=== PATIENT | male | born 1950 | race Caucasian/White ===

== ENCOUNTER 2021-06-29 08:06 | Outpatient (REF) | payer MEDICARE, OTHER, SELFPAY ==
--- NOTE | ~2021-06-29 | US_ITS ---
EXAMINATION: US RETROPERITONEAL LIMITED (RENAL ONLY) CLINICAL INFORMATION: Renal cyst. COMPARISON: None TECHNIQUE: Real-time imaging of the kidneys. FINDINGS: RIGHT KIDNEY: 12.8 x 5.7 x 5.2 cm (SAG x AP x TRV). The kidney is normal in size, contour, and echogenicity. Renal cortical thickness is normal. There is a small cyst possibly with wall calcification or milk of calcium cyst in the midpole measuring 8 x 5 x 8 mm. No renal calculi. No hydronephrosis. LEFT KIDNEY: 4.9 x 5.8 x 7.1 cm (SAG x AP x TRV). The kidney is normal in size, contour, and echogenicity. Renal cortical thickness is normal. There are multiple cysts, at least 4, largest measuring 5.2 x 5.4 x 5 cm in the midpole. No renal calculi or hydronephrosis. US/US renal BI IMPRESSION: Bilateral renal cysts, left greater than right.
== END 2021-06-29 08:07 | disposition home or self-care (01) ==
LOC: HO.US 08:06
PROVIDERS: PCP Otolaryngology; Visit Provider Urology
DX: N28.1 Cyst of kidney, acquired (principal)
CPT/HCPCS: 76775

== ENCOUNTER → 2021-07-28 15:34 | Outpatient (BNVA) | payer MEDICARE, OTHER, SELFPAY | PROVIDERS: PCP Physician Assistant; Visit Provider Urology | DX: N28.1 Cyst of kidney, acquired (principal); N40.0 Benign prostatic hyperplasia without lower urinary tract symptoms | CPT/HCPCS: Q3014 ==

== ENCOUNTER → 2021-12-11 12:17 | Outpatient (BNVA) | payer MEDICARE, OTHER, SELFPAY | PROVIDERS: PCP Physician Assistant; Visit Provider Urology | DX: Z13.89 Encounter for screening for other disorder (principal) | CPT/HCPCS: Q3014 ==

== ENCOUNTER 2022-05-11 08:57 | Outpatient (REF) | payer MEDICARE, OTHER, SELFPAY ==
--- NOTE | ~2022-05-11 | US_ITS ---
EXAMINATION: US RETROPERITONEAL LIMITED (RENAL ONLY) CLINICAL INFORMATION: Cysts. COMPARISON: Previous renal ultrasound most recent June 2021 TECHNIQUE: Grayscale and color imaging of the kidneys FINDINGS: RIGHT KIDNEY: 13.9 x 5.6 x 5.6 cm (SAG x AP x TRV). The kidney is normal in size, contour, and echogenicity. Renal cortical thickness is normal. There is a 1.4 x 0.6 x 1.2 cm cyst in the lateral midpole. No calculi or mass. No hydronephrosis. LEFT KIDNEY: 12.7 x 5.6 x 5.6 cm (SAG x AP x TRV). The kidney is normal in size, contour, and echogenicity. Renal cortical thickness is normal. There are 3 cysts measuring 5.9 x 5.3 x 4.7 cm in the midpole, 0.7 x 0.6 x 1 cm in the lateral midpole and 0.4 x 0.4 x 0.7 cm in the lateral lower pole. No calculi or mass. No hydronephrosis. US/US renal BI IMPRESSION: Bilateral renal cysts not appreciably changed from June 2021 exam.
[2022-05-11 10:50] LABS: Blood Urea Nitrogen 16 mg/dL (9-16); Estimated Glomerular Filt Rate 59
[2022-05-11 11:16] LABS: PSA,Total (Free>4and<10) 2.85 ng/mL (0.00-4.00)
== END 2022-05-11 08:58 | disposition home or self-care (01) ==
LOC: HO.US 08:57
PROVIDERS: PCP Family Medicine; Visit Provider Urology
DX: Z12.5 Encounter for screening for malignant neoplasm of prostate (principal); N28.1 Cyst of kidney, acquired; N40.0 Benign prostatic hyperplasia without lower urinary tract symptoms
CPT/HCPCS: 36415; 76775; 82565; 84153; 84520

== ENCOUNTER → 2022-05-21 13:07 | Outpatient (BNVA) | payer MEDICARE, OTHER, SELFPAY | PROVIDERS: PCP Family Medicine; Visit Provider Urology | DX: N40.0 Benign prostatic hyperplasia without lower urinary tract symptoms (principal); N28.1 Cyst of kidney, acquired | CPT/HCPCS: 51798; 99212 ==

== ENCOUNTER 2023-05-02 09:46 | Outpatient (REF) | payer MEDICARE, OTHER, SELFPAY ==
--- NOTE | ~2023-05-02 | US_ITS ---
EXAMINATION: US RETROPERITONEAL COMPLETE (RENAL) CLINICAL INFORMATION: Cyst of kidney, acquired. COMPARISON: Renal ultrasound 05/11/2022 and 06/29/2021. MRI abdomen 02/11/2022. TECHNIQUE: Real-time imaging of the kidneys and bladder. FINDINGS: RIGHT KIDNEY: 13.0 x 6.2 x 5.4 cm (SAG x AP x TRV). The kidney is normal in size, contour, and echogenicity. Renal cortical thickness is normal. No hydronephrosis. At the lower pole, a 4 mm nonobstructing calculus is seen, with twinkle artifact. At the interpolar aspect, a 1.4 cm benign, simple cyst is seen. LEFT KIDNEY: 13.0 x 6.3 x 4.8 cm (SAG x AP x TRV). The kidney is normal in size, contour, and echogenicity. Renal cortical thickness is normal. No hydronephrosis. At the upper pole, a 3 mm nonobstructing calculus is seen, with twinkle artifact. At the interpolar aspect, a 5 mm nonobstructing calculus is seen, with twinkle artifact. At the interpolar aspect, 6.0 cm and 0.8 cm benign, simple cysts are seen. BLADDER: Well distended and normal. Bilateral ureteral jets are demonstrated. Prevoid bladder volume is 352 mL. Postvoid bladder volume is 58 mL. OTHER: Prostate dimensions are 3.9 x 4.8 x 4.4 cm (volume 42.7 mL). US/US retroperitoneal comp IMPRESSION: 1. Nonobstructing bilateral renal calculi are seen, as detailed. No hydronephrosis is noted bilaterally. 2. There are benign, simple bilateral cysts, for which no imaging follow-up is recommended. 3. There is a borderline increased postvoid residual volume. 4. There is prostatomegaly.
== END 2023-05-02 09:47 | disposition home or self-care (01) ==
LOC: HO.US 09:46
PROVIDERS: PCP Family Medicine; Visit Provider Nurse Practitioner Family
DX: Z12.5 Encounter for screening for malignant neoplasm of prostate (principal); N28.1 Cyst of kidney, acquired; N40.0 Benign prostatic hyperplasia without lower urinary tract symptoms
CPT/HCPCS: 36415; 76770; 84153

== ENCOUNTER 2023-05-02 10:15 | Outpatient (REF) | payer MEDICARE, OTHER, SELFPAY ==
[2023-05-02 12:04] LABS: Prostate Specific Antigen 2.58 ng/mL (<0.05-4.0)
== END 2023-05-02 10:16 | disposition home or self-care (01) ==
LOC: HO.LAB 10:15
PROVIDERS: PCP Family Medicine; Visit Provider Urology
DX: Z13.89 Encounter for screening for other disorder (principal)
CPT/HCPCS: 36415; 84153

== ENCOUNTER → 2023-05-26 09:20 | Outpatient (BNVA) | payer MEDICARE, OTHER, SELFPAY | PROVIDERS: Visit Provider Urology | DX: N20.0 Calculus of kidney (principal); N40.0 Benign prostatic hyperplasia without lower urinary tract symptoms | CPT/HCPCS: 51798; 99212 ==

== ENCOUNTER 2024-05-07 07:51 | Outpatient (REF) | payer MEDICARE, SELFPAY ==
--- NOTE | ~2024-05-07 | US_ITS ---
EXAMINATION: US RETROPERITONEAL LIMITED (RENAL ONLY) CLINICAL INFORMATION: Calculus of kidney. COMPARISON: Renal ultrasound 05/02/2023, renal ultrasound 05/11/2022. TECHNIQUE: Real-time imaging of the kidneys. Limited visualization due to bowel gas. FINDINGS: RIGHT KIDNEY: 13.3 x 5.4 x 6.7 cm (SAG x AP x TRV). Renal cortical thickness is normal. No hydronephrosis. No renal calculi. Limited visualization. 1.2 cm mid pole cyst with peripheral echogenic focus, possibly representing calcification. There is no indication for additional imaging at this time. LEFT KIDNEY: 13.4 x 6.1 x 5.3 cm (SAG x AP x TRV). 5 mm upper pole calculus. No hydronephrosis. Renal cortical thickness is normal. Multiple renal cysts, largest 6.1 cm mid pole cyst with benign features. There is no indication for follow-up imaging. US/US renal BI IMPRESSION: 5 mm left renal calculus. No hydronephrosis.
[2024-05-07 10:50] LABS: Prostate Specific Antigen 3.42 ng/mL (<0.05-4.0)
== END 2024-05-07 07:52 | disposition home or self-care (01) ==
LOC: HO.US 07:51
PROVIDERS: PCP Family Medicine; Visit Provider Urology
DX: Z12.5 Encounter for screening for malignant neoplasm of prostate (principal); N20.0 Calculus of kidney; N40.0 Benign prostatic hyperplasia without lower urinary tract symptoms
CPT/HCPCS: 36415; 76775; 84153

== ENCOUNTER 2024-05-25 08:44 | Outpatient (AMB) | payer MEDICARE, SELFPAY ==
--- NOTE | 2024-05-25 08:50 | A.OFFVIS_ITS ---
Intake Visit Reasons: 1y/US(set) Intake Note: Patient is present for 1 y/US Urology Medication:tamsulosin Antibiotic Allergy:none Blood Thinner:none Dairy Nutritionist Required: No Allergies No Known Allergies Allergy (Verified 05/25/24 08:51) Medication List - Last Reconciled 05/25/24 by Jordan Ayoub MD amlodipine 5 mg PO DAILY metoprolol succinate ER 50 mg PO DAILY rosuvastatin 10 mg PO BEDTIME simvastatin 20 mg PO BEDTIME tamsulosin 0.4 mg PO BEDTIME 90 days HPI Comments Details: Ron Bedolla is a very pleasant male. He is a patient of Dr White. He is seen for the following urologic conditions - lower urinary tract symptoms - nephrolithiasis Slight rise in PSA over the last year Within limits Discussed ultrasound Controlled urinary symptoms Twelve month follow-up Lower Urinary Tract Symptoms:? Current visit is for?further evaluation of, lower urinary tract symptoms, predominate obstructive symptoms.? Current treatment includes?medication, alpha jan - tamsulosin ? Prostate Symptom Score?Mild (0-8), Bother 2 Imaging - 05/20 prostate 45 cc, complete emptying, small bilateral cysts, punctate stone PSA - 09/17 2.5, 05/19 2.9, 05/20 2.6, 05/21 3.4 Therapeutic plan - continue alpha-jan Nephrolithiasis/Urolithiasis:? Here with follow-up renal imaging ?had parathyroidectomy for elevated calcium. ? They are here for?further evaluation of nephrolithiasis.? Urolithiasis was diagnosed?07/15 Hematuria with [facility] [place] visit ?- No prior history or FH ?- thinks he drank too much iced tea this summer.? The patient previously had kidney stones whose composition w?unknown.? Laboratory investigations include?no recent labs.? 24 Hour urine evaluation?none on file.? Prior imaging includes?07/15 , a CT (computed tomography) scan of the abdomen/pelvis (stone protocol) - right mild ureteronephrosis with 4mm distal stone ?- left kidney 4.7cm cyst ?02/13 - , a renal ultrasound - 06/17 renal ultrasound 8 mm cyst right side, left multiple cysts largest 4 cm - 05/19 renal ultrasound bilateral cysts, no stones - 05/21 renal ultrasound bilateral cysts up to 6 cm, small stone left 4 mm ? Current therapeutic plan will be?to continue with imaging surveillance.? PFSH Medical History Bladder outlet obstruction BPH (benign prostatic hyperplasia) Hyperglycemia Hyperlipidemia Microscopic hematuria Renal cyst, acquired Weak urinary stream Surgical History H/O heart surgery Review of Systems Const Denies chills and Denies fever(s) Card Reports no additional complaints and Denies syncope Resp Denies cough GI Denies abdominal pain and Denies heartburn Reports as per HPI and Denies change in libido Neuro Denies syncope Psych Denies change in libido Endo Denies change in libido Physical Exam Const General: cooperative, healthy appearing, comfortable and no acute distress Orientation/consciousness: patient oriented x3 HEENT Face and sinus: Yes normal facial exam Mouth: moist mucous membranes Neck Neck: Yes normal visual inspection, Yes full ROM and Yes trachea midline Chest Chest palpation & inspection: normal inspection of the chest Resp Effort & Inspection: normal respiratory effort, able to speak in complete sentences and no respiratory distress GI Inspection: Yes normal to inspection Back/Spine/Pelvis Cervical Spine: normal cervical lordosis Thoracic/Lumbar Spine: thoracic and lumbar spine normal to inspection Skin General skin exam: no rashes or lesions noted Neuro General: patient oriented x3, gait normal, tone normal and moves all extremities Extrem General: Yes normal to inspection and Yes capillary refill normal Assessment & Plan Assessment & Plan (1) Nephrolithiasis: Code(s): N20.0 - Calculus of kidney Category: Medical (2) BPH (benign prostatic hyperplasia): Code(s): N40.0 - Benign prostatic hyperplasia without lower urinary tract symptoms Category: Medical Plan Twelve month follow-up repeat PSA and renal ultrasound Orders: Orders Prostate Specific Antigen 364 Days N20.0 - Calculus of kidney US renal BI 12 Months N20.0 - Calculus of kidney Patient Instructions: Imaging studies, laboratory and physical exam results were discussed and reviewed in detail. No major barriers to patient understanding were identified. An opportunity to ask questions regarding the treatment plan was provided. All questions were answered. The patient expressed understanding and agreement with the above treatment plan. The patient is aware they should contact our office by phone for worsening of their current condition or the appearance of new urologic symptoms. Compliance is encouraged with any medications and followup testing that is ordered. It is a privilege to participate in the urologic care of your patient. If you have any questions or concerns regarding treatment for the above conditions, or other urologic issues, please do not hesitate to contact me. The office telephone contact is [phone]. This note is constructed using voice recognition software. While every effort has been made to ensure accuracy gift shop assistant errors may have been included. Yours sincerely, Dr Jordan Ayoub MD, [facility] - Urology Providers of Expert, Compassionate Care for the Genitourinary System Coding Level of Care Code Est Pt Level 4 (51271) Diagnoses Nephrolithiasis N20.0 BPH (benign prostatic hyperplasia) N40.0
== END 2024-05-25 09:17 | disposition home or self-care (01) ==
PROVIDERS: PCP Family Medicine; Visit Provider Urology
DX: N20.0 Calculus of kidney (principal); N40.0 Benign prostatic hyperplasia without lower urinary tract symptoms
CPT/HCPCS: 99213

== ENCOUNTER → 2024-05-25 08:44 | Outpatient (BNVA) | payer MEDICARE, SELFPAY | PROVIDERS: PCP Family Medicine; Visit Provider Urology | DX: N40.0 Benign prostatic hyperplasia without lower urinary tract symptoms (principal); N20.0 Calculus of kidney | CPT/HCPCS: 99212 ==

== ENCOUNTER 2025-05-13 13:02 | Outpatient (REF) | payer MEDICARE, SELFPAY ==
--- NOTE | ~2025-05-13 | US_ITS ---
.EXAMINATION: Ultrasound renal bilaterally. CLINICAL INFORMATION: Calculus of the kidney. COMPARISON: May 07, 2024. TECHNIQUE: Real-time ultrasound kidneys using grayscale technique. FINDINGS: Right kidney: Routine by 6 x 6 cm. Normal echotexture. Normal renal cortical thickness. No hydronephrosis. There is a 1.2 cm anechoic lesion with punctate hyperechogenic area centered in the midportion. No flow on color Doppler interrogation. Left kidney: 13 x 6 x 4 cm. Normal echotexture. Normal renal cortical thickness. No hydronephrosis. There is a 6.5 cm exophytic anechoic lesion without septations or nodular component in the midportion. There are other few scattered anechoic lesions measuring less than 2 cm. US/US renal BI IMPRESSION: No hydronephrosis. Bosniak type I and type II cystic lesions. Overall stable. Electronically signed by: Immanuel Mariano MD 05/13/2025 02:10 PM EDT
--- OUTSIDE RECORDS SUMMARY | 2025-05-13 14:26 | XMS_ITS | Clinical Summary ---
Author Organization [facility] Address [address] [place] [address] Care Team Providers Care Mining Technician Name Role Phone HussainPhilip MD Primary Care Provider [phone] Allergies Active Allergy Reactions Criticality Noted Date Comments No Active Allergies 04/24/2015 Medications Medication Sig Dispensed Refills Start Date End Date Status simvastatin (ZOCOR) 20 MG tablet 2 03/26/2015 Active NASONEX 50 MCG/ACT nasal spray 11 03/25/2015 Active metoprolol (TOPROL-XL) 50 MG 24 hr tablet 3 03/25/2015 Active loratadine (CLARITIN) 10 MG tablet Claritin 10 MG Oral Tablet TAKE 1 TABLET DAILY. 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 Major depressive disorder, recurrent episode Overview: ICD-10 Activation BP (high blood pressure) 04/24/2015 Hypercholesteremia 04/24/2015 Cannabis dependence with physiological dependenc e 04/24/2015 Social History Tobacco Use Types Packs/Day Years Used Date Smoking Tobacco: Never Smokeless Tobacco: Never Alcohol Use Standard Drinks/Week Comments Yes 3 (1 standard drink = 0.6 oz pur e alcohol) Sex and Gender Information Value Date Recorded Sex Assigned at Not on file Gender Identity Not on file Sexual Orientation Not on file Plan of Treatment Health Maintenance Due Date Last Done Comments Hepatitis C Screening 1950 COVID-19 Vaccine (#1) 1950 Depression Screening 1964 Preventative Health Evaluation 01/28/1970 Colon Cancer Screening (Colonoscopy) 01/28/1997 Shingrix-Zoster Vaccine (1 of 2) 01/28/2002 Fall Risk Assessment 01/28/2017 Pneumococcal Vaccine (1 of 1 - PCV) 01/28/2017 DTap / Tdap / Td (2 - Td or Tdap) 03/07/2023 013 Influenza Vaccine (Season Ended) 2025 RSV Adult > 60+ Yrs or Pregn ant (1 - 1-dose 75+ series) 01/28/2027 Hepatitis B Vaccines Aged Out No long er eligible based on patient's age to complete this topic RSV Ped < 20 months Aged Out No longe r eligible based on patient's age to complete this topic Advance Directives For more information, please contact: [phone] Documents on File Type Date Recorded Patient Home Theater Specialist Expl anation Advance Directive and Living Will 07/09/2015 12:50 PM Care Teams Mining Technician Relationship Specialty Start Date End Date Philip Nixon MD [address] [place] [address] PCP - General Family Medicine 02/12/16
[2025-05-13 15:33] LABS: Prostate Specific Antigen 3.56 ng/mL (<0.05-4.0)
== END 2025-05-13 13:03 | disposition home or self-care (01) ==
LOC: HO.US 13:02
PROVIDERS: PCP Family Medicine; Visit Provider Urology
DX: Z12.5 Encounter for screening for malignant neoplasm of prostate (principal); N20.0 Calculus of kidney
CPT/HCPCS: 36415; 76775; 84153

== ENCOUNTER → 2025-05-13 13:03 | Outpatient (BNV) | payer MEDICARE, SELFPAY | PROVIDERS: PCP Family Medicine; Visit Provider Radiology Diagnostic Radiology | DX: N28.1 Cyst of kidney, acquired (principal) | CPT/HCPCS: 76775 ==

== ENCOUNTER 2025-05-22 08:29 | Outpatient (AMB) | payer MEDICARE, SELFPAY ==
--- NOTE | 2025-05-22 08:30 | A.OFFVIS_ITS ---
Intake Visit Reasons: 1yr/PSA/U/S Intake Note: Patient is present for 1 y/US follow up with PSA Urology Medication:tamsulosin Antibiotic Allergy:none Blood Thinner:none PVR:195 ml's PSA 05/13/25: 3:56 Imaging :05/13/25 Product/Device Technologist Required: No Accompanied by: Self / Same As Patient Allergies No Known Allergies Allergy (Verified 05/22/25 08:42) HPI Comments Details: Ron Bedolla is a very pleasant male. He is a patient of Dr White. He is seen for the following urologic conditions - lower urinary tract symptoms - nephrolithiasis PSA remains within limit Continues on tamsulosin Urinary Symptoms Review - Urinary hesitancy noted, managed with tamsulosin - Nocturnal symptoms not explicitly discussed Brother with prostate cancer 12m f/u Lower Urinary Tract Symptoms:? Current visit is for?further evaluation of, lower urinary tract symptoms, predominate obstructive symptoms.? Current treatment includes?medication, alpha jan - tamsulosin ? Prostate Symptom Score?Mild (0-8), Bother 2 Imaging - 05/20 prostate 45 cc, complete emptying, small bilateral cysts, punctate stone PSA - 09/17 2.5, 05/19 2.9, 05/20 2.6, 05/21 3.4, 05/22 3.6 Therapeutic plan - continue alpha-jan Nephrolithiasis/Urolithiasis:? Here with follow-up renal imaging ?had parathyroidectomy for elevated calcium. ? They are here for?further evaluation of nephrolithiasis.? Urolithiasis was diagnosed?07/15 Hematuria with [facility] [place] visit ?- No prior history or FH ?- thinks he drank too much iced tea this summer.? The patient previously had kidney stones whose composition w?unknown.? Laboratory investigations include?no recent labs.? 24 Hour urine evaluation?none on file.? Prior imaging includes?07/15 , a CT (computed tomography) scan of the abdomen/pelvis (stone protocol) - right mild ureteronephrosis with 4mm distal stone ?- left kidney 4.7cm cyst ?02/13 - , a renal ultrasound - 06/17 renal ultrasound 8 mm cyst right side, left multiple cysts largest 4 cm - 05/19 renal ultrasound bilateral cysts, no stones - 05/21 renal ultrasound bilateral cysts up to 6 cm, small stone left 4 mm - 05/22 renal ultrasound will cysts no stone seen ? Current therapeutic plan will be?to continue with imaging surveillance.? PFSH Medical History Bladder outlet obstruction BPH (benign prostatic hyperplasia) Hyperglycemia Hyperlipidemia Microscopic hematuria Renal cyst, acquired Weak urinary stream Surgical History H/O heart surgery Review of Systems Const Denies chills and Denies fever(s) Card Reports no additional complaints and Denies syncope Resp Denies cough GI Denies abdominal pain and Denies heartburn Reports as per HPI and Denies change in libido Neuro Denies syncope Psych Denies change in libido Endo Denies change in libido Physical Exam Const General: cooperative, healthy appearing, comfortable and no acute distress Orientation/consciousness: patient oriented x3 HEENT Face and sinus: Yes normal facial exam Mouth: moist mucous membranes Neck Neck: Yes normal visual inspection, Yes full ROM and Yes trachea midline Chest Chest palpation & inspection: normal inspection of the chest Resp Effort & Inspection: normal respiratory effort, able to speak in complete sentences and no respiratory distress GI Inspection: Yes normal to inspection Back/Spine/Pelvis Cervical Spine: normal cervical lordosis Thoracic/Lumbar Spine: thoracic and lumbar spine normal to inspection Skin General skin exam: no rashes or lesions noted Neuro General: patient oriented x3, gait normal, tone normal and moves all extremities Extrem General: Yes normal to inspection and Yes capillary refill normal Assessment & Plan Assessment & Plan (1) Nephrolithiasis: Code(s): N20.0 - Calculus of kidney Category: Medical (2) BPH (benign prostatic hyperplasia): Code(s): N40.0 - Benign prostatic hyperplasia without lower urinary tract symptoms Category: Medical (3) Renal cyst, acquired: Code(s): N28.1 - Cyst of kidney, acquired Category: Medical Plan 1. Prostate-Specific Antigen (Psa) Level Monitoring PSA level is 3.6, slightly up from 3.4 last year. Continue annual monitoring. 2. Family History Of Prostate Cancer Family history of prostate cancer requires vigilant PSA monitoring. 3. Renal Cysts 6 cm renal cyst on left side, stable and asymptomatic. Continue observation. 4. Weight Loss 35-pound weight loss due to dietary changes and exercise, improving blood sugar levels. 5. Dietary Modifications For Blood Sugar Control Reduced carbohydrate intake and increased vegetables to manage blood sugar. 6. Urinary Hesitancy Managed with tamsulosin; adjust dosage if symptoms worsen during travel. Discussion Notes During the visit, we discussed the patient's PSA levels, which have shown a slight increase but remain within a manageable range. We also reviewed the patient's family history of prostate cancer, emphasizing the importance of regular monitoring. The renal cysts were noted to be stable, and no stones were present. The patient has successfully lost weight through dietary changes, which has positively impacted his blood sugar levels. We discussed the management of urinary hesitancy with tamsulosin and advised on dosage adjustments if necessary during travel. Patient Instructions - Continue annual PSA monitoring. - Maintain dietary changes to manage blood sugar levels. - Monitor urinary symptoms and adjust tamsulosin dosage if needed during travel. Orders: Orders US renal BI 12 Months N28.1 - Cyst of kidney, acquired Prostate Specific Antigen 12 Months N40.0 - Benign prostatic hyperplasia without lower urinary tract symptoms Patient Instructions: This note is constructed using voice recognition software. While every effort has been made to ensure accuracy airport maintenance laborer errors may have been included. Imaging studies, laboratory and physical exam results were discussed and reviewed in detail. No major barriers to patient understanding were identified. An opportunity to ask questions regarding the treatment plan was provided. All questions were answered. The patient expressed understanding and agreement with the above treatment plan. The patient is aware they should contact our office by phone for worsening of their current condition or the appearance of new urologic symptoms. Compliance is encouraged with any medications and followup testing that is ordered. It is a privilege to participate in the urologic care of your patient. If you have any questions or concerns regarding treatment for the above conditions, or other urologic issues, please do not hesitate to contact me. The office telephone contact is [phone]. Sincerely, Dr Jordan Ayoub MD, [facility] - Urology Compassionate Specialist Care for the Genitourinary System Coding Level of Care Code Est Pt Level 4 (28069) Complex EM visit Add On G2211 Diagnoses Nephrolithiasis N20.0 BPH (benign prostatic hyperplasia) N40.0 Renal cyst, acquired N28.1
--- OUTSIDE RECORDS SUMMARY | 2025-05-22 08:45 | XMS_ITS | Clinical Summary ---
Author Organization [facility] Address [address] [place] [address] Care Team Providers Care Reimbursement Consultant Name Role Phone HussainPhilip MD Primary Care Provider [phone] Allergies Active Allergy Reactions Criticality Noted Date [...] Advance Directives For more information, please contact: [phone] Documents on File Type Date Recorded Patient Crossband Layer Expl anation Advance Directive and Living Will 07/09/2015 12:50 PM Care Teams Reimbursement Consultant Relationship Specialty Start Date End Date Philip Nixon MD [address] [place] [address] PCP - General Family Medicine 02/12/16
== END 2025-05-22 09:06 | disposition home or self-care (01) ==
LOC: HO.HUSH 08:30
PROVIDERS: PCP Family Medicine; Visit Provider Urology
DX: N20.0 Calculus of kidney (principal); N40.0 Benign prostatic hyperplasia without lower urinary tract symptoms; N28.1 Cyst of kidney, acquired; Z13.9 Encounter for screening, unspecified
CPT/HCPCS: 99214; G2211

== ENCOUNTER → 2025-05-22 08:29 | Outpatient (BNVA) | payer MEDICARE, SELFPAY | PROVIDERS: PCP Family Medicine; Visit Provider Urology | DX: N20.0 Calculus of kidney (principal); N40.0 Benign prostatic hyperplasia without lower urinary tract symptoms; N28.1 Cyst of kidney, acquired | CPT/HCPCS: 51798; 81003; 99212 ==